=== PATIENT | male | born 1960 | race Caucasian/White ===

== ENCOUNTER 2018-02-22 10:18 | Emergency (ER) | payer SELFPAY ==
[2018-02-22] MEDS ORDERED: DEXAMETHASONE SOD PHOS 4 MG/ML VIAL (11:49)
[2018-02-22] MEDS: DEXAMETHASONE SOD PHOS 4 MG/ML VIAL IM (11:53)
== END 2018-02-22 11:55 | disposition home or self-care (01) ==
LOC: ER 10:18
DX: T65.891A Toxic effect of other specified substances, accidental (unintentional), initial encounter (principal); R07.0 Pain in throat; Z90.89 Acquired absence of other organs; Y92.89 Other specified places as the place of occurrence of the external cause
CPT/HCPCS: 96372; 99283; J1100

== ENCOUNTER 2018-04-27 06:51 | Emergency (ER) | payer SELFPAY ==
[~2018-04-27] VITALS: Ht 177.8 cm; Wt 74.8 kg
[~2018-04-27 06:51] MED LIST: TRAM50TA PO
[2018-04-27 07:05] VITALS: BP 124/74
--- NOTE | 2018-04-27 07:26 | PHYS DOC ---
Past Medical History Past Medical History: No Pertinent History Past Surgical History: Appendectomy, Other Additional Past Surgical Histo: R KNEE Alcohol Use: Occasionally Drug Use: Marijuana Adult General Chief Complaint Chief Complaint: KNEE INJURY [facility] HPI Patient is a 57 year old L with chronic right knee pain who presents with acute right knee injury. Patient states he was home taking the trash out when he slipped on wet mat twisting his right knee. Patient has right knee swelling lateral knee pain, tenderness with decreased range of motion secondary to pain. No other injury or pain complaint. [] Review of Systems Review of Systems ROS as per HPI All other systems were reviewed and found to be within normal limits, except as documented in this note. Current Medications Current Medications Current Medications Medications (Trade) Dose Ordered Sig/Marisol Start Time Stop Time Status Last Admin Dose Admin Ibuprofen (Motrin) 600 mg 1X ONCE 04/27/18 08:00 04/27/18 08:01 Oxycodone/ Acetaminophen (Percocet 10/325) 1 tab 1X ONCE 04/27/18 08:00 04/27/18 08:01 Allergies Allergies Allergies Coded Allergies Type Severity Reaction Last Updated Verified No Known Drug Allergies 02/22/18 No Physical Exam Physical Exam Constitutional: Well developed, well nourished, no acute distress. [] Extremities: R Knee pain, anterior swelling, medial knee pain tenderness. No deformity, limited range of motion secondary to pain.. [] Neurologic: Alert and oriented X 3, normal motor function, normal sensory function, no focal deficits noted. [] Psychologic: Affect normal, judgement normal, mood normal. [] Current Patient Data Vital Signs Vital Signs Date Time Temp Pulse Resp B/P (MAP) Pulse Ox O2 Delivery O2 Flow Rate FiO2 04/27/18 07:05 82 16 124/74 (91) 99 Room Air EKG EKG [] Radiology/Procedures Radiology/Procedures [Right knee x-ray: Joint effusion per radiology report] Course & Med Decision Making Course & Med Decision Making Pertinent Labs and Imaging studies reviewed. (See chart for details) [RICE with outpatient referral.] Dragon Disclaimer Dragon Disclaimer This electronic medical record was generated, in whole or in part, using a voice recognition dictation system. Departure Departure Impression: Primary Impression: Sprain of right knee Disposition: HOME, SELF-CARE Condition: STABLE Referrals: NO PCP (PCP) Scripts Tramadol Hcl (TRAMADOL HCL) 50 Mg Tablet 50 MG PO Q6H PRN for PAIN for 3 Days, #15 TAB 0 Refills Prov: JUN JONES DO 04/27/18 JUN JONES DO Apr 27, 2018 07:26
[2018-04-27] MEDS ORDERED: TRAM50TA PO (07:43)
--- NOTE | 2018-04-27 07:44 | RAD ---
Examination: KNEE RIGHT 4V History: RIGHT KNEE PAIN AFTER FALL TODAY
PATIENT STATES HX OF SURGERY FOR TORN LIGAMENTS 40 YEARS AGO Comparison/Correlation: None Findings: Total of 4 images of the right knee were obtained. Joint spaces are normal. No acute fracture or bony destruction. Soft tissues are unremarkable. Minimal spurring about the lateral aspect of the patella is present. Moderate-sized knee joint effusion is present. Impression: Joint effusion. No acute process. Electronically signed by: Maximilian Casas MD (04/27/2018 7:41 AM) [facility] – [place], [place]
[2018-04-27] MEDS ORDERED: IBUPROFEN 200 MG TABLET. PO ONE (08:00)
[2018-04-27] MEDS ORDERED: oxyCODONE/APAP 10/325 1 TAB TABLET PO ONE (08:00)
== END 2018-04-27 08:04 | disposition home or self-care (01) ==
LOC: ER 06:51
DX: S83.8X1A Sprain of other specified parts of right knee, initial encounter (principal); Z90.89 Acquired absence of other organs; X50.1XXA Overexertion from prolonged static or awkward postures, initial encounter; Y93.89 Activity, other specified; Y92.008 Other place in unspecified non-institutional (private) residence as the place of occurrence of the external cause; Y99.8 Other external cause status
CPT/HCPCS: 73564; 99284

== ENCOUNTER 2018-05-21 15:05 | Emergency (ER) | payer SELFPAY ==
[~2018-05-21] VITALS: Ht 177.8 cm; Wt 74.8 kg
[2018-05-21 15:35] VITALS: BP 146/70
[2018-05-21] MEDS: HYDROcodone/APAP 5/325MG 1 TAB TABLET PO ONE (15:54)
--- NOTE | 2018-05-21 16:11 | RAD ---
Examination: KNEE RIGHT 3V History: PT FELL 2 WEEKS AGO, RT KNEE GAVE OUT ON PT TODAY, RT KNEE PAIN Comparison/Correlation: None Findings: Total 3 images of the right knee were obtained. Small joint effusion is present. Joint spaces are adequate. No acute fracture or bony destruction. No degenerative change. Impression: Small joint effusion. Electronically signed by: Maximilian Casas MD (05/21/2018 4:07 PM) [facility]
[2018-05-21] MEDS ORDERED: HYDR-2762 PO (16:32)
--- NOTE | 2018-05-21 16:32 | PHYS DOC ---
Past Medical History Past Medical History: No Pertinent History Past Surgical History: Appendectomy, Other Additional Past Surgical Histo: R KNEE Alcohol Use: Occasionally Drug Use: Marijuana Adult General Chief Complaint Chief Complaint: KNEE INJURY HPI HPI Patient is a 57 year old M who presents with right lateral knee pain. Patient reports he was seen about 1 month ago for knee pain. He started feeling better and did not f/u with PCP. He reports that today he was walking and heard/felt a pop and the knee gave out, causing the patient to fall to the ground. He denies other injury. Review of Systems Review of Systems Constitutional: Denies fever or chills [] Cardiovascular: No additional information not addressed in HPI [] Musculoskeletal: Reports right lateral knee pain Integument: Denies rash or skin lesions [] Neurologic: Denies focal weakness or sensory changes [] All other systems were reviewed and found to be within normal limits, except as documented in this note. Current Medications Current Medications Current Medications Medications (Trade) Dose Ordered Sig/Marisol Start Time Stop Time Status Last Admin Dose Admin Acetaminophen/ Hydrocodone Bitart (Lortab 5/325) 1 tab 1X ONCE 05/21/18 15:45 05/21/18 15:46 DC 05/21/18 15:54 1 TAB Allergies Allergies Allergies Coded Allergies Type Severity Reaction Last Updated Verified No Known Drug Allergies 02/22/18 No Physical Exam Physical Exam Constitutional: Well developed, well nourished, no acute distress, non-toxic appearance. [] HENT: Normocephalic, atraumatic Eyes: PERRLA, EOMI, conjunctiva normal, no discharge. [] Neck: Normal range of motion, no tenderness, supple, no stridor. [] Skin: Warm, dry, no erythema, no rash. [] Extremities: Right lateral knee pain on palpation, mild swelling, distal sensation intact, limited ROM d/t pain Neurologic: Alert and oriented X 3, normal motor function, normal sensory function, no focal deficits noted. [] Psychologic: Affect normal, judgement normal, mood normal. [] Current Patient Data Vital Signs Vital Signs Date Time Temp Pulse Resp B/P (MAP) Pulse Ox O2 Delivery O2 Flow Rate FiO2 05/21/18 15:35 97.6 90 20 146/70 (95) 97 Room Air 97.6 EKG EKG [] Radiology/Procedures Radiology/Procedures PATIENT: VILMA ESCOBAR GACCOUNT: [id number]#: [id number] : 1960 LOCATION: ER AGE: 57 SEX: M EXAM STATUS: REG ER ORD. PHYSICIAN: KASSI MIRANDA APRN REASON: fall today, RT KNEE PAIN PROCEDURE: KNEE RIGHT 3V Examination: KNEE RIGHT 3V History: PT FELL 2 WEEKS AGO, RT KNEE GAVE OUT ON PT TODAY, RT KNEE PAIN Comparison/Correlation: None Findings: Total 3 images of the right knee were obtained. Small joint effusion is present. Joint spaces are adequate. No acute fracture or bony destruction. No degenerative change. Impression: Small joint effusion. Electronically signed by: Maximilian Nelson MD (05/21/2018 4:07 PM) [facility] DICTATED and SIGNED BY: MAXIMILIAN NLESON MD DATE: 05/21/18 1606 [] Course & Med Decision Making Course & Med Decision Making Pertinent Labs and Imaging studies reviewed. (See chart for details) Plan: knee immobilizer, lortab rx, ice, elevate, f/u with ortho, return precautions reviewed Staff Physician Addendum: I was working in the ER during the course of this patient's visit. I was available for consultation as needed, but I was not directly involved in the care of this patient. Dragon Disclaimer Dragon Disclaimer This electronic medical record was generated, in whole or in part, using a voice recognition dictation system. Departure Departure Impression: Primary Impression: Knee pain, acute Disposition: 01 HOME, SELF-CARE Condition: STABLE Referrals: PRISCILA SOSA II, MD, TIMOTHY J MD Patient Instructions: Knee Immobilization, Knee Pain Scripts Hydrocodone Bit/Acetaminophen (HYDROCODONE-APAP 7.5-325 ) 1 Each Tablet 1-2 TAB PO PRN Q6HRS PRN for PAIN, #30 TAB 0 Refills Prov: KASSI MIRANDA APRN 05/21/18 Problem Qualifiers Primary Impression: Knee pain, acute Laterality: right Qualified Codes: M25.561 - Pain in right knee KASSI MIRANDA APRN May 21, 2018 16:32 HAYLEY GRAY MD May 22, 2018 18:37
== END 2018-05-21 16:37 | disposition home or self-care (01) ==
LOC: ER 15:05
DX: M25.461 Effusion, right knee (principal); Z90.89 Acquired absence of other organs; W18.39XA Other fall on same level, initial encounter; Y93.01 Activity, walking, marching and hiking; Y92.89 Other specified places as the place of occurrence of the external cause; Y99.8 Other external cause status
CPT/HCPCS: 29505; 73562; 99284